=== PATIENT | female | born 1970 | race Caucasian/White ===

== ENCOUNTER 2017-05-18 14:29 | Observation (INO) ==
[2017-05-18 14:57] LABS: Basophils % 0.4 %; Eosinophils # 0.1 K/mcL (0.0-0.6); Eosinophils % 1.5 %; Hematocrit 42.3 % (35.3-44.9); Hemoglobin 14.6 g/dL (11.5-15.4); Immature Granulocytes % 0.3 % (0-4); Lymphocytes # 1.6 K/mcL (0.6-4.6); Lymphocytes % 23.2 %; Mean Corpuscular HGB Conc 34.5 g/dL (31.6-35.5); Mean Corpuscular Hemoglobin 29.9 pg (28.0-33.3); Mean Corpuscular Volume 86.7 fL (83.0-100.0); Mean Platelet Volume 9.4 fL (9.4-12.4); Monocytes # 0.6 K/mcL (0.0-1.3); Monocytes % 8.2 %; Neutrophils # 4.5 K/mcL (1.6-8.9); Platelet Count 171 K/mcL (140-400); Red Blood Count 4.88 M/mcL (3.82-4.97); Red Cell Distribution Width 13.2 % (11.5-14.5); Segmented Neutrophils % 66.4 %
[2017-05-18 15:05] LABS: BUN/Creatinine Ratio 26 (6-26); Blood Urea Nitrogen 14 mg/dL (6-20); Calcium 8.7 mg/dL (8.6-10.3); Carbon Dioxide 31 mEq/L (23-29); Chloride 106 mEq/L (98-107); Glucose 102 mg/dL (70-105); Osmolality,Calculated 291 (280-300); Potassium 3.3 mEq/L (3.5-5.1); Sodium 140 mEq/L (136-145); eGFR For African Americans > 60 (> 60); eGFR For Non-African Americans > 60 (> 60)
--- NOTE | 2017-05-18 15:30 | Emergency Department Note ---
START Narrative - START START: I examined this patient and my medical decision-making was reviewed with the Resident Physician. I agree with the documented findings, disposition and treatment plan as described except to the extent set forth below. 46-year-old female presents emergency room for symptomatic bradycardia. Patient outpatient transthoracic echo done today. This was ordered because she has been taking Imitrex for migraines and they wanted to be sure it was not affecting her heart. During the testing she had a moment or her heart rate dropped and she felt very weak and she could feel her heart beating at a slow rate. She is very symptomatic with this and continues to be asymptomatic in the ER with a heart rate in the low 40s. She does take atenolol. This could be medication induced. Patient needs to be admitted for observation and cardiac monitoring and will hold the beta disha.
--- NOTE | 2017-05-18 15:43 | Emergency Department Note ---
Disposition Clinical Impression: Symptomatic bradycardia Chest pain Qualifiers: Chest pain type: precordial pain Qualified Code(s): R07.2 - Precordial pain Disposition: Admitted As Inpatient Condition: Fair Time of Disposition: 17:09 Chest Pain HPI - General Chief Complaint: ED Chest Pain Stated Complaint: chest pain Time Seen by Provider: 05/18/17 14:57 Source: patient, EMS Limitations: no limitations Vital Signs Reviewed: Yes Nursing Notes Reviewed: Yes - History of Present Illness HPI Narrative: 46-year-old female who complains of lightheadedness and shortness of breath during echocardiogram earlier today. Patient was found to be bradycardic. Patient was sent to the ED for evaluation by Dr. Inman her PCP. Patient also had chest pain mid substernal chest pressure 6/10 and constant. Severity scale (1-10): 8 - Related Data Home Medications Medication Instructions Recorded Confirmed Aspirin Enteric Coated [Aspirin EC] 81 mg PO DAILY 05/18/17 05/18/17 Atenolol [Tenormin] 50 mg PO QPM 05/18/17 05/18/17 EPINEPHrine [Epipen] 0.3 mg IM ONCE PRN 05/18/17 05/18/17 Metformin HCl [Metformin HCl ER] 1,000 mg PO QPM 05/18/17 05/18/17 Potassium Chloride [K-Tab ER] 20 meq PO DAILY 05/18/17 05/18/17 Ranitidine HCl [Zantac] 150 mg PO BID 05/18/17 05/18/17 hydroCHLOROthiazide 25 mg PO DAILY 05/18/17 05/18/17 [Hydrochlorothiazide] Allergies Allergy/AdvReac Type Severity Reaction Status Date / Time acetaminophen [From Percocet] AdvReac See Verified 01/11/15 21:15 Comments hydrocodone [From Vicodin] AdvReac See Verified 01/11/15 21:15 Comments ketorolac [From Toradol] AdvReac See Verified 01/11/15 21:15 Comments meperidine [From Demerol] AdvReac See Verified 01/11/15 21:15 Comments morphine AdvReac See Verified 01/11/15 21:15 Comments Oxycodone [From Percocet] AdvReac See Verified 01/11/15 21:15 Comments tramadol AdvReac See Verified 01/11/15 21:15 Comments All systems ED: reviewed and negative except as stated. Review of Systems: As Per HPI Constitutional: Reports: weakness. Denies: fever Eyes: Denies: vision change ENT ED: Denies: congestion Cardiovascular: Reports: chest pain, palpitations Respiratory: Denies: cough, dyspnea, wheezes Gastrointestinal: Denies: abdominal pain, nausea, vomiting, diarrhea Genitourinary: Denies: urgency, dysuria, frequency Musculoskeletal: Denies: back pain Integumentary: Denies: rash Neurological: Denies: headache Psychiatric: Reports: anxiety Endocrine: Reports: fatigue Chest Pain PMH - Past Medical History Medical history: Reports: hypertension Surgical history: Reports: cholecystectomy, hysterectomy Psychiatric history: Reports: no psych history TRIP RIDER history: Reports: no TRIP RIDER history, polycystic ovary syndrome - Social History Smoking Status: Never smoker Alcohol use: Reports: none Drug use: Reports: none Physical Exam Vital Signs Temperature 98.4 F 05/18/17 14:30 Pulse Rate 52 05/18/17 14:30 Respiratory Rate 16 05/18/17 14:30 Blood Pressure 137/63 05/18/17 14:30 O2 Sat by Pulse Oximetry 94 05/18/17 14:30 Temperature 97.5 F L 05/18/17 20:47 Pulse Rate 52 05/18/17 20:47 Respiratory Rate 15 05/18/17 20:47 Blood Pressure 144/79 05/18/17 20:47 O2 Sat by Pulse Oximetry 95 05/18/17 20:47 Oxygen Delivery Oxygen Delivery Room Air 38-year-old female who is alert and oriented 3 and in no acute distress. Patient looks very fatigued. Patient is nontoxic appearing. Patient has no diaphoresis. Patient has normal-appearing vital signs blood exception of her pulse which is bradycardic at 52 beats minute. - General Limitations: no limitations General appearance: alert, in no apparent distress - Head Head exam: atraumatic, normocephalic, normal inspection - Eye Eye exam: Present: normal appearance, PERRL, EOMI - ENT ENT exam: normal exam, normal oropharynx, mucous membranes moist - Neck Neck exam: Present: normal inspection, full ROM, trachea midline - Chest Chest inspection: Present: normal inspection, symmetric chest wall rise - Respiratory Respiratory exam: Present: normal lung sounds bilaterally - Cardiovascular Cardiovascular exam: Present: normal rhythm, bradycardia - Abdominal Exam Abdominal exam: Present: soft, Non-Tender. Absent: tenderness, distention, guarding, rebound, rigidity - Extremities Exam Extremities exam: Present: normal inspection, full ROM. Absent: tenderness, pedal edema - Back Exam Back exam: Present: normal inspection, full ROM. Absent: tenderness, CVA tenderness (R), CVA tenderness (L) Course Vital Signs Temperature 98.4 F 05/18/17 14:30 Pulse Rate 52 05/18/17 14:30 Respiratory Rate 16 05/18/17 14:30 Blood Pressure 137/63 05/18/17 14:30 O2 Sat by Pulse Oximetry 94 05/18/17 14:30 Temperature 97.5 F L 05/18/17 20:47 Pulse Rate 52 05/18/17 20:47 Respiratory Rate 15 05/18/17 20:47 Blood Pressure 144/79 05/18/17 20:47 O2 Sat by Pulse Oximetry 95 05/18/17 20:47 Oxygen Delivery Oxygen Delivery Room Air Chest Pain - MDM Narrative Medical decision making narrative: Symptomatic sinus bradycardia secondary to sensitivity to her beta disha atenolol. Patient has a normal blood pressure although she is symptomatic with weakness, chest pain and lightheadedness. Patient is given IV normal saline for IV rehydration, aspirin and nitroglycerin. Patient's pain has improved and is doing well but patient is very emotional and anxious. Patient states she does not want anything for anxiety. Heart score 3 1505: Discussed case with Dr. Sanchez of cardiology states admitted to medicine and they will see patient once admitted, hold atenolol, he agrees with my assessment and plan for fluids, aspirin and nitroglycerin. Dr. Horner the [facility] susceptive patient for admission at 1508 hrs. - Lab Data Lab results reviewed: Yes I reviewed the patient's lab results. Lab results narrative: Short CBC 05/18/17 Range/Units 14:45 WBC 6.8 (4.3-11.1) K/mcL Hgb 14.6 (11.5-15.4) g/dL Hct 42.3 (35.3-44.9) % Plt Count 171 (140-400) K/mcL Neutrophils # 4.5 (1.6-8.9) K/mcL BMP 05/18/17 Range/Units 14:45 Sodium 140 (136-145) mEq/L Potassium 3.3 L (3.5-5.1) mEq/L Chloride 106 (98-107) mEq/L Carbon Dioxide 31 H (23-29) mEq/L BUN 14 (6-20) mg/dL Creatinine 0.53 L (0.60-1.20) mg/dL Glucose 102 (70-105) mg/dL Calcium 8.7 (8.6-10.3) mg/dL Cardiac Enzymes 05/18/17 Range/Units 14:45 Troponin I < 0.03 (< 0.04) ng/mL Result diagrams: 05/18/17 14:45 05/18/17 14:45 Lab Results 05/18/17 05/18/17 05/18/17 Range/Units 14:45 14:45 14:45 WBC 6.8 (4.3-11.1) K/mcL RBC 4.88 (3.82-4.97) M/mcL Hgb 14.6 (11.5-15.4) g/dL Hct 42.3 (35.3-44.9) % MCV 86.7 (83.0-100.0) fL MCH 29.9 (28.0-33.3) pg MCHC 34.5 (31.6-35.5) g/dL RDW 13.2 (11.5-14.5) % Plt Count 171 (140-400) K/mcL MPV 9.4 (9.4-12.4) fL Immature Gran % 0.3 (0-4) % Seg Neutrophils % 66.4 % Lymphocytes % 23.2 % Monocytes % 8.2 % Eosinophils % 1.5 % Basophils % 0.4 % Neutrophils # 4.5 (1.6-8.9) K/mcL Lymphocytes # 1.6 (0.6-4.6) K/mcL Monocytes # 0.6 (0.0-1.3) K/mcL Eosinophils # 0.1 (0.0-0.6) K/mcL Basophils # 0.0 (0.0-0.2) K/mcL Sodium 140 (136-145) mEq/L Potassium 3.3 L (3.5-5.1) mEq/L Chloride 106 (98-107) mEq/L Carbon Dioxide 31 H (23-29) mEq/L BUN 14 (6-20) mg/dL Creatinine 0.53 L (0.60-1.20) mg/dL Est GFR ( Amer) > 60 (> 60) Est GFR (Non-Af Amer) > 60 (> 60) BUN/Creatinine Ratio 26 (6-26) Glucose 102 (70-105) mg/dL Calculated Osmolality 291 (280-300) Calcium 8.7 (8.6-10.3) mg/dL Troponin I < 0.03 (< 0.04) ng/mL - Radiology Data Radiology results reviewed: Yes I reviewed the patient's radiology results. Chest X-Ray 05/18/17 14:33 IMPRESSION: No acute cardiopulmonary disease. D/ / Christiano Rollins MD / Christiano Rollins MD Interpreting Provider: Christiano Rollins MD - EKG Data EKG attestation: Yes I reviewed and interpreted this EKG. EKG results narrative: Today's EKG shows sinus bradycardia at a rate of [address] elevations or depressions and a needs, there is EKG shows sinus rhythm at 61 beats minute. EKG shows normal: sinus rhythm Rate: bradycardia When compared to previous EKG there are: changes noted (. His EKG taken 2016) Heart Score - Score History: Slightly Suspicious EKG: Non Specific repolarisation Disturbance Age: 45-65 Risk Factors: 1-2 risk factors Troponin: Less than normal limit HEART Score Total: 3
[2017-05-18] MEDS ORDERED: Nitroglycerin 0.4 MG TAB.SUBL SL PRN (16:34)
[2017-05-18] MEDS ORDERED: 0.9 % Sodium Chloride 1,000 ML IVC ONE (16:35)
[2017-05-18] MEDS ORDERED: Ondansetron 4 MG/2 ML VIAL IVP PRN ×2 (16:46→22:17)
[2017-05-18] MEDS ORDERED: Naloxone 0.4 MG/ML INJ IVP PRN (20:24)
--- NOTE | 2017-05-18 22:11 | Internal Med History&Physical ---
Date of Encounter: 05/18/17 Time of Encounter: 22:09 Assessment and Plan (1) Symptomatic bradycardia Current visit: Yes Status: Acute Likely caused by atenolol use. No prior h/o LA. However she does admit to some atypical CP. Remains hemodynamically stable. - cardiac enzymes x 2 q 6 hr - EKG result of SB with rate of 48 - ASA - O2 by NC to keep SpO2 greater than 92%; continuous tele and spo2 monitoring - CBCD, BMP in AM - Fasting lipids - Tylenol 650 mg PO q 4-6 hr PRN headache - Home meds (check list) - Heparin 5000 U SQ BID - 2D Echo completed this afternoon; EF 60% no systolic or diastolic dysfunction. Sinus bradycardia with rate in the 40's - Cardiology consult- will see in the morning -Hold BB (2) Chest pain Current visit: Yes Status: Acute Continues to have precordial chest pressure with radiation to bilateral posterior shoulders. Initial troponin negative EKG shows sinus bradycardia without ST elevation or depression. see plan above Qualifiers: Chest pain type: precordial pain Qualified Code(s): R07.2 - Precordial pain (3) Hypokalemia Current visit: Yes Status: Acute Received 40 meq K in the ED check serum mg now- replace pending results recheck serum potassium in am (4) DVT prophylaxis Current visit: Yes Status: Acute Heparin 5000 units subcutaneous twice a day Internal Medicine - H&P: HPI Chief complaint: intermittent weakness and fatigue, dizziness chest discomfort Admitted From: Home Plans for Post Hospital Care: Home History of present illness: Ms. Blanc is a 46 year old female with past medical history of hypertension. Reports that she was outpatient clinic today getting transthoracic echocardiogram. During the procedure she began experiencing weakness fatigue and she felt like her heart was beating really slow. Continues to endorse fatigue, dizziness, chest pressure with radiation to bilateral shoulders. Denies any diaphoresis, nausea, vomiting. No prior history of LA. She does take atenolol at home. Initial workup in the ED results with troponin that is 0.3 and EKG was sinus bradycardia without ST elevation or depression. However due to heart rate in the 40s she is being admitted Past Med Surg Social Fam HX - Past Medical History Medical history: hypertension Psychiatric history: no psych history - Past Surgical History Surgical History: cholecystectomy, hysterectomy - Social History Smoking Status: Former smoker Smokeless Tobacco Status: No Alcohol use: none Drug use: none - Family History Father Hx Family Cardiac Disorders: Yes Mother Hx Family Cancer: Yes Internal Medicine - H&P: Meds Aspirin Enteric Coated [Aspirin EC] 81 mg PO DAILY 05/18/17 [History] Atenolol [Tenormin] 50 mg PO QPM 05/18/17 [History] EPINEPHrine [Epipen] 0.3 mg IM ONCE PRN 05/18/17 [History] Metformin HCl [Metformin HCl ER] 1,000 mg PO QPM 05/18/17 [History] Potassium Chloride [K-Tab ER] 20 meq PO DAILY 05/18/17 [History] Ranitidine HCl [Zantac] 150 mg PO BID 05/18/17 [History] hydroCHLOROthiazide [Hydrochlorothiazide] 25 mg PO DAILY 05/18/17 [History] 3 Allergy/AdvReac Type Severity Reaction Status Date / Time acetaminophen [From Percocet] AdvReac See Verified 01/11/15 21:15 Comments hydrocodone [From Vicodin] AdvReac See Verified 01/11/15 21:15 Comments ketorolac [From Toradol] AdvReac See Verified 01/11/15 21:15 Comments meperidine [From Demerol] AdvReac See Verified 01/11/15 21:15 Comments morphine AdvReac See Verified 01/11/15 21:15 Comments Oxycodone [From Percocet] AdvReac See Verified 01/11/15 21:15 Comments tramadol AdvReac See Verified 01/11/15 21:15 Comments All Systems PM: A 10-system review of systems was performed and is negative for pertinent findings except as documented above in the HPI. Review of systems: GENERAL: Negative for any nausea, vomiting, fevers, chills, or weight loss. Positive for fatigue NEUROLOGIC: Negative for any blurry vision, blind spots, double vision, facial asymmetry, dysphagia, dysarthria, hemiparesis, hemisensory deficits, vertigo, ataxia. HEENT: Negative for any head trauma, neck trauma, neck stiffness, photophobia, phonophobia, sinusitis, rhinitis. CARDIAC: Chest discomfort described as pressure with radiation to bilateral shoulders, dizziness PULMONARY: Negative for any shortness of breath, wheezing, COPD, or TB exposure. GASTROINTESTINAL: Negative for any abdominal pain, nausea, vomiting, bright red blood per rectum, melena. GENITOURINARY: Negative for any dysuria, hematuria, incontinence. INTEGUMENTARY: Negative for any rashes, cuts, insect bites. RHEUMATOLOGIC: Negative for any joint pains, photosensitive rashes, history of vasculitis or kidney problems. HEMATOLOGIC: Negative for any abnormal bruising, frequent infections or bleeding - Constitutional Vitals: Temp Pulse Resp BP Pulse Ox 97.5 F L 52 15 144/79 95 05/18/17 20:47 05/18/17 20:47 05/18/17 20:47 05/18/17 20:47 05/18/17 20:47 General appearance: Present: cooperative, A&O X 3, no acute distress, answers questions appropriately Exam: GENERAL: The patient is a well-developed, well-nourished female in no apparent distress. SHe is alert and oriented x3. VITAL SIGNS: Temperature 98.4, pulse 72, respirations 18, blood pressure 146/78 , and O2 saturation 96% on room air. HEENT: Head is normocephalic and atraumatic. Extraocular muscles are intact. Pupils are equal, round, and reactive to light and accommodation. Nares appeared normal. Mouth is well hydrated and without lesions. Mucous membranes are moist. Posterior pharynx clear of any exudate or lesions. NECK: Supple. No carotid bruits. No lymphadenopathy or thyromegaly. LUNGS: Clear to auscultation. HEART: Bradycardia with regular rhythm, without murmur ABDOMEN: Soft, nontender, and nondistended. Positive bowel sounds. No hepatosplenomegaly was noted. EXTREMITIES: Without any cyanosis, clubbing, rash, lesions or edema. NEUROLOGIC: Cranial nerves II through XII are grossly intact. PSYCHIATRIC: Flat affect, but denies suicidal or homicidal ideations. SKIN: No ulceration or induration present. Internal Med - H&P Results - Labs CBC & Chem 7: 05/18/17 14:45 05/18/17 14:45 Labs: Cardiac Enzymes 05/18/17 Range/Units 21:02 Troponin I < 0.03 (< 0.04) ng/mL - EKG Data -: EKG Interpreted by Myself EKG shows normal: sinus rhythm Rate: bradycardia - EKG Data EKG comments: Sinus bradycardia with a rate of [address] elevation or depression noted 05/18/17 22:16 - Diagnostic Studies Chest x-ray Status: image reviewed by me Additional comments: No acute pulmonary process
[2017-05-18] MEDS: Famotidine 20 MG TABLET PO SCH (22:38)
[2017-05-19 02:14] LABS: Basophils % 0.3 %; Eosinophils # 0.1 K/mcL (0.0-0.6); Hematocrit 37.7 % (35.3-44.9); Immature Granulocytes % 0.2 % (0-4); Lymphocytes # 1.7 K/mcL (0.6-4.6); Lymphocytes % 28.4 %; Mean Corpuscular HGB Conc 34.2 g/dL (31.6-35.5); Mean Corpuscular Hemoglobin 30.1 pg (28.0-33.3); Mean Corpuscular Volume 88.1 fL (83.0-100.0); Mean Platelet Volume 9.3 fL (9.4-12.4); Monocytes # 0.5 K/mcL (0.0-1.3); Monocytes % 7.4 %; Neutrophils # 3.7 K/mcL (1.6-8.9); Platelet Count 157 K/mcL (140-400); Red Blood Count 4.28 M/mcL (3.82-4.97); Red Cell Distribution Width 13.5 % (11.5-14.5); Segmented Neutrophils % 61.7 %
[2017-05-19 02:15] LABS: Hemoglobin 12.9 g/dL (11.5-15.4)
[2017-05-19 02:27] LABS: BUN/Creatinine Ratio 22 (6-26); Blood Urea Nitrogen 13 mg/dL (6-20); Calcium 8.2 mg/dL (8.6-10.3); Carbon Dioxide 28 mEq/L (23-29); Chloride 109 mEq/L (98-107); Chol/HDL Ratio 4.8 (0-4.9); Cholesterol 160 mg/dL (< 200); Glucose 151 mg/dL (70-105); HDL Cholesterol 33 mg/dL (40-59); LDL Cholesterol,Calculated 105 mg/dL (0-99); Osmolality,Calculated 293 (280-300); Potassium 3.6 mEq/L (3.5-5.1); Sodium 140 mEq/L (136-145); Triglycerides 108 mg/dL (< 150); eGFR For African Americans > 60 (> 60); eGFR For Non-African Americans > 60 (> 60)
[2017-05-19] MEDS ORDERED: *HR* Heparin 5,000 UNIT/ML VIAL SQ SCH (06:00)
[2017-05-19] MEDS ORDERED: hydroCHLOROthiazide 25 MG TABLET PO SCH (09:00)
[2017-05-19] MEDS ORDERED: Aspirin Enteric Coated 81 MG Tablet PO SCH (09:00)
[2017-05-19] MEDS: Famotidine 20 MG TABLET PO SCH (09:40)
[2017-05-19] MEDS ORDERED: Acetaminophen 325 MG TABLET PO ONE (09:41)
--- NOTE | 2017-05-19 09:50 | Cardiology Consult Note ---
<Mariela Garcia Go - Last Filed: 05/19/17 09:51> Date of Encounter: 05/19/17 Time of Encounter: 08:30 Assessment and Plan (1) Symptomatic bradycardia Current Visit: Yes Status: Acute Likely secondary to betablocker, symptoms have improved since admission. HR 48 SB upon arrival to ED. Has been on Atenolol 50 mg daily since 2013. Replace potassium, 3.3 upon admission. HR improved with holding of betablocker. Last dose, Tuesday. Telemetry review: avg HR=51 overnight. Min=40 (nocturnal). No pause. HR 60's upon exam this morning. Continue to monitor telemetry for additional 24 hours. Consider HM upon discharge. (2) Chest pain Current Visit: Yes Status: Acute Atypical chest pain. Troponin negative x3. No ischemic ECG changes. TTE 05/18/17: EF 60% with normal wall motion. Negative nuclear stress test October 2014. Follow-up with Cardiology in the outpatient setting, can consider repeating stress test if symptoms have not improved. Qualifiers: Chest pain type: precordial pain Qualified Code(s): R07.2 - Precordial pain Discussion w patient/family: The assessment and plan as outlined above was discussed with the patient and/or family members who expressed understanding and agreement. All questions were answered. Thank you for involving us in the care of your patient. Please call with any questions. The patient will be discussed and reviewed with , changes to be made accordingly. History of Present Illness Consult date: 05/19/17 Requesting physician: Samaria Farrar Consult reason: Bradycardia Chief complaint: Chest pain, fatigue History of present illness: Ms. Blanc is a 46 year old female with PMHx significant for DMII, obesity, chronic pain, and HTN who presented to the ED with complaints of slow heart rate and chest pain. Pt. was getting outpatient echocardiogram when felt tired, she was told her HR was in the 40's and was recommended to follow-up with PCP that day. She saw PCP who recommended ED evaluation due to ongoing bradycardia and complaints of chest pain. Chest discomfort is described as left-sided sharp pain that is constant and radiates to back. Reports SL NTG tab improved but did not alleviate pain; discomfort worsens with body movement including sitting up, walking, etc. She reports 6 month history of fatigue, reports symptoms started after starting medication--Imitrex which has since been stopped. Upon arrival to ED, ECG demonstrated SB HR 48. Troponin was negative. Prior CV testin-day regadenoson nuclear 10/24/14: perfusion imaging negative for ischemia or infarct. TTE 05/18/17: LVEF 60%, mild LVDD, mild TR, normal wall motion. Past Med Surg Social Fam HX - Past Medical History Attestation: Yes The following information was validated with the patient. Source: patient Medical history: diabetes, hypertension Psychiatric history: no psych history - Past Surgical History Surgical History: cholecystectomy, hysterectomy - Social History Smoking Status: Never smoker Smokeless Tobacco Status: No Alcohol use: none Drug use: none - Family History Father Hx Family Cardiac Disorders: Yes Mother Hx Family Cancer: Yes Medications and Allergies Aspirin Enteric Coated [Aspirin EC] 81 mg PO DAILY 05/18/17 [History] Atenolol [Tenormin] 50 mg PO QPM 05/18/17 [History] EPINEPHrine [Epipen] 0.3 mg IM ONCE PRN 05/18/17 [History] Metformin HCl [Metformin HCl ER] 1,000 mg PO QPM 05/18/17 [History] Potassium Chloride [K-Tab ER] 20 meq PO DAILY 05/18/17 [History] Ranitidine HCl [Zantac] 150 mg PO BID 05/18/17 [History] hydroCHLOROthiazide [Hydrochlorothiazide] 25 mg PO DAILY 05/18/17 [History] 3 Allergy/AdvReac Type Severity Reaction Status Date / Time hydrocodone [From Vicodin] AdvReac See Verified 01/11/15 21:15 Comments ketorolac [From Toradol] AdvReac See Verified 01/11/15 21:15 Comments meperidine [From Demerol] AdvReac See Verified 01/11/15 21:15 Comments morphine AdvReac See Verified 01/11/15 21:15 Comments Oxycodone [From Percocet] AdvReac See Verified 01/11/15 21:15 Comments tramadol AdvReac See Verified 01/11/15 21:15 Comments All Systems Review: A 10-system review of systems was performed and is negative for pertinent findings except as documented above in the HPI. - Cardiovascular Cardiovascular: as per HPI Physical Examination Vital Signs, Last 4 Hours Temp Pulse Resp BP Pulse Ox 05/19/17 07:33 97.9 F 50 17 112/62 97 General: Conversant, No Apparent Distress HEENT: Atraumatic, Normocephaly, Mucus Membranes Moist Cardiac: Reg Rate and Rhythm (bradycardiac), Normal S1 and S2 Lungs: Normal Breath Sounds Neuro: Alert and responsive Abdomen: Soft Skin: No rashes noted on visualized skin Musculoskeletal: No Chest Wall Tenderness Extremities: No Edema, Normal Pulses Results 05/19/17 01:55 05/19/17 01:55 Lab Results 05/18/17 05/19/17 05/19/17 21:02 01:55 01:55 WBC 6.1 Hgb 12.9 D Hct 37.7 Plt Count 157 Sodium Potassium Chloride Carbon Dioxide BUN Creatinine Glucose Calcium Magnesium Troponin I < 0.03 < 0.03 05/19/17 05/19/17 01:55 01:55 WBC Hgb Hct Plt Count Sodium 140 Potassium 3.6 Chloride 109 H Carbon Dioxide 28 BUN 13 Creatinine 0.60 Glucose 151 H Calcium 8.2 L Magnesium 2.0 Troponin I - Imaging and Cardiology Stress Test: report reviewed Echo: report reviewed Other Results: 12 hour tele: avg HR=51 SB. Min=40 (nocturnal) No pause. - EKG Interpretation EKG results cardiology: personally reviewed Consult Discharge Plan - Plan Referrals: Pipo Inman MD [Primary Care Provider] - 05/26/17 11:00 am <Milton Sanchez - Last Filed: 05/19/17 13:08> Date of Encounter: 05/19/17 Time of Encounter: 12:30 - Attending Attestation I have personally performed a face to face evaluation on this patient. I have reviewed and agree with the care plan. History and Exam by me shows: IMP 1. Symptomatic bradycardia, secondary to atenolol, started for hyptn, now held x 18 hours with resolution of sinus bradycardia, pt now ambulatory, dizzyness and fatique much improved. She is at low riks for hospital discharge, will follow in office in two to three weeks, monitor bp off atenolol, will consider Holter monitor if symptomatic at that time. 2. Chest pain: atypical, most consistent with musculoskeletal etiology, 3. BEH - blood pressure remains adequately controlled off atenolol, monitor and record at home bid, will review at next office visit 4. Non insulin dependent Adult onset DM, controlled on oral agents, now change in tx 5. GERD - controlled on current meds. Assessment and Plan Discussion w patient/family: The assessment and plan as outlined above was discussed with the patient and/or family members who expressed understanding and agreement. All questions were answered. Thank you for involving us in the care of your patient. Please call with any questions. History of Present Illness History of present illness: Ms. Blanc is a 46 year old female All Systems Review: A 10-system review of systems was performed and is negative for pertinent findings except as documented above in the HPI. Physical Examination Vital Signs, Last 4 Hours Temp Pulse Resp BP Pulse Ox 05/19/17 11:39 97.4 F L 51 17 121/74 95 05/19/17 09:44 97 Results 05/19/17 01:55 05/19/17 01:55 Lab Results 05/18/17 05/19/17 05/19/17 21:02 01:55 01:55 WBC 6.1 Hgb 12.9 D Hct 37.7 Plt Count 157 Sodium Potassium Chloride Carbon Dioxide BUN Creatinine Glucose Calcium Magnesium Troponin I < 0.03 < 0.03 05/19/17 05/19/17 01:55 01:55 WBC Hgb Hct Plt Count Sodium 140 Potassium 3.6 Chloride 109 H Carbon Dioxide 28 BUN 13 Creatinine 0.60 Glucose 151 H Calcium 8.2 L Magnesium 2.0 Troponin I
[2017-05-19] MEDS ORDERED: Ibuprofen 400 MG TABLET PO ONE (09:55)
--- NOTE | 2017-05-19 10:15 | Internal Med Progress Note ---
Date of Encounter: 05/19/17 Time of Encounter: 10:16 - Assessment and plan (1) Symptomatic bradycardia Current Visit: Yes Status: Acute Assessment and plan: This most likely is caused by atenolol use she has been on atenolol since 2013 has been unchanged on it. She also takes hydrochlorothiazide for blood pressure. The bradycardia occurred after she was getting a TTE or she did feel weak. She no longer feels weak only feeling the slight bradycardia. She has a history of bradycardia says she normally sits between 50 and 60 bpm but has never been in the 40s like prior to her admission. Patient's 2-D echo completed earlier today showed an EF of 60% with no systolic or diastolic dysfunction. Troponins 2 negative. EKG sinus bradycardia with no acute ST or T-wave abnormalities. Aspirin, given in the emergency department O2 by nasal cannula to keep SPO2 greater than 92%. Continuous telemetry. Hold atenolol We will continue to watch her for 24 hours on telemetry plan for discharge tomorrow if no overnight events. Cardiology has seen the patient and recommends: Continue monitor telemetry for additional 24 hours. Continue holding atenolol. Consider Holter monitor upon discharge. Follow-up with cardiology in the outpatient setting and possibly consider repeating stress test if symptoms are not improved. (2) Chest pain Current Visit: Yes Status: Acute Assessment and plan: Patient is still having precordial chest pressure without radiation says it only occurs though with exertion and really occurs with every single heartbeat during exertion. Initial and second troponin came back negative. EKG only showed sinus bradycardia without any ST elevation or depression or any other acute changes. Patient was given aspirin and nitroglycerin in the emergency department. Nitroglycerin did not help with her chest pain. Patient does state that the chest pain is getting better day by day. This most likely is not an acute coronary event. Cardiology following see above for cardiology recommendations Qualifiers: Chest pain type: precordial pain Qualified Code(s): R07.2 - Precordial pain (3) Hypokalemia Current Visit: Yes Status: Acute Assessment and plan: Patient's original potassium in the emergency department was 3.3. They did give 40 mEq potassium in the emergency department. Today it is 3.6. Resolved but we will continue to monitor. (4) Headache Current Visit: Yes Status: Acute Assessment and plan: Patient headache most likely secondary to giving nitroglycerin. There are no recent falls she has had no head trauma or any other sources for the headache. We will give Tylenol for headache. Qualifiers: Headache type: unspecified Headache chronicity pattern: acute headache Intractability: not intractable Qualified Code(s): R51 - Headache (5) DVT prophylaxis Current Visit: Yes Status: Acute Assessment and plan: Heparin 5000 units subcutaneous twice a day - Subjective Interval history: Patient states that she did well overnight she is not having anymore symptoms of the bradycardia but she is still having this left-sided chest pain that is underneath her breast. Says it does come and go butit is worse whenever she moves. She says it feels like a sharp pain as her heart takes each beat. He is not complaining of any chest pressure, shortness of breath, nausea, vomiting , fevers. She having no other pain anywhere else. Patient said she is no longer as weakness when she originally was admitted. Patient otherwise has no complaints. no overnight event. - Constitutional Vitals: Temp Pulse Resp BP Pulse Ox 97.9 F 50 17 112/62 97 05/19/17 07:33 05/19/17 07:33 05/19/17 07:33 05/19/17 07:33 05/19/17 09:44 General appearance: Present: cooperative, A&O X 3, no acute distress, answers questions appropriately - Head Head exam: Present: atraumatic, normocephalic - Eye Eye exam: Present: PERRL, conjuntiva pink, sclera anicteric Pupils: Present: PERRL - Neck Neck exam general surgery: Present: supple, trachea midline. Absent: lymphadenopathy - Respiratory Respiratory exam: Present: CTAB. Absent: accessory muscle use, rales, rhonchi, wheezes - Cardiovascular Cardiovascular exam: Present: bradycardia, RRR, +S1, +S2. Absent: diastolic murmur, gallop, rubs, systolic murmur - GI/Abdominal GI/Abdominal exam: Present: normal bowel sounds, soft, no peritoneal signs. Absent: distended, tenderness - Extremities Exam Extremities exam: Present: warm, radial pulses palpable and symmetrical. Absent : calf tenderness, cyanotic, pedal edema - Neurological Exam Neurological exam: Present: CN II-XII intact, oriented X3, no focal deficits. Absent: pronater drift, facial droop, speech deficit - Skin Skin exam: Present: dry, intact Internal Medicine: Result - Labs CBC & Chem 7: 05/19/17 01:55 05/19/17 01:55 Labs: Short CBC 05/19/17 Range/Units 01:55 WBC 6.1 (4.3-11.1) K/mcL Hgb 12.9 D (11.5-15.4) g/dL Hct 37.7 (35.3-44.9) % Plt Count 157 (140-400) K/mcL Neutrophils # 3.7 (1.6-8.9) K/mcL BMP 05/19/17 01:55 Sodium 140 Potassium 3.6 Chloride 109 H Carbon Dioxide 28 BUN 13 Creatinine 0.60 Glucose 151 H Calcium 8.2 L Cardiac Enzymes 05/18/17 05/19/17 Range/Units 21:02 01:55 Troponin I < 0.03 < 0.03 (< 0.04) ng/mL Consult Discharge Plan - Plan Referrals: Pipo Inman MD [Primary Care Provider] - 05/26/17 11:00 am
[2017-05-19 11:40] VITALS: BP 121/74
--- NOTE | 2017-05-19 13:15 | Discharge Summary ---
<ReggieJeremy - Last Filed: 05/19/17 13:13> Date of Encounter: 05/19/17 Time of Encounter: 13:13 - Discharge Diagnosis (1) Symptomatic bradycardia Priority: Primary Status: Acute (2) Chest pain Priority: Secondary Status: Acute Qualifiers: Chest pain type: precordial pain Qualified Code(s): R07.2 - Precordial pain (3) Hypokalemia Priority: Secondary Status: Acute (4) Headache Priority: Secondary Status: Resolved Qualifiers: Headache type: unspecified Headache chronicity pattern: acute headache Intractability: not intractable Qualified Code(s): R51 - Headache (5) DVT prophylaxis Priority: Secondary Status: Acute - Discharge Medications Home Medications: Aspirin Enteric Coated [Aspirin EC] 81 mg PO DAILY 05/18/17 [History] EPINEPHrine [Epipen] 0.3 mg IM ONCE PRN 05/18/17 [History] Metformin HCl [Metformin HCl ER] 1,000 mg PO QPM 05/18/17 [History] Potassium Chloride [K-Tab ER] 20 meq PO DAILY 05/18/17 [History] Ranitidine HCl [Zantac] 150 mg PO BID 05/18/17 [History] hydroCHLOROthiazide [Hydrochlorothiazide] 25 mg PO DAILY 05/18/17 [History] Allergies/Adverse Reactions: 3 Allergy/AdvReac Type Severity Reaction Status Date / Time hydrocodone [From Vicodin] AdvReac See Verified 01/11/15 21:15 Comments ketorolac [From Toradol] AdvReac See Verified 01/11/15 21:15 Comments meperidine [From Demerol] AdvReac See Verified 01/11/15 21:15 Comments morphine AdvReac See Verified 01/11/15 21:15 Comments Oxycodone [From Percocet] AdvReac See Verified 01/11/15 21:15 Comments tramadol AdvReac See Verified 01/11/15 21:15 Comments Date of admission: 05/18/17 17:18 Primary care physician: Pipo Inman MD Discharging clinician: Jeremy Paredes Anticipated date of discharge: 05/19/17 - Patient Status Disposition: Home, Self-Care Condition: Good Functional capacity at discharge: independent ambulation Overall status at discharge: patient is back to baseline - Ambulatory Orders Ambulatory Orders: ECG holter monitor [ECG] Time Frame: 2 Days, Facility: [facility], Location: Cardiopulmonary Svc - Discharge Instructions Instructions: Chest Pain (DC) Follow Up With: Pipo Inman MD [Primary Care Provider] - 05/26/17 11:00 am - Diet and Activity Activity: resume usual activities as tolerated Diet: advance to your usual diet Interval History: Patient states she is still having the muscular skeletal chest pain. She is less weak and less nauseous today. She is feeling better. She is not feeling like her heart rate is going as slow as it was yesterday. She says the chest pain is only on exertion. But describes it as feeling her heart beat more palpation like. Patient is having nausea or vomiting or fevers or urinary symptoms or changes in bowel movements. Hospital course: Ms. Blanc is a 46 year old female presented to the emergency department after having a TTE done which came back normal with no diastolic or systolic dysfunction and a EF of 60-65%. After the procedure they noticed she was bradycardic in the 40s so sent her to her primary care physician who was worried about the bradycardia and transferred her via squad to the emergency department. While in the emergency department she was having chest pains treated with aspirin and nitroglycerin. The nitroglycerin did cause a headache which is sent away with Tylenol. Her EKG was normal and all other labs including troponins 2 as well as chest x-ray were normal. She was bradycardic there but she does take atenolol as well as hydrochlorothiazide for hypertension. Due the chest pain and bradycardia as well as generalized weakness the ED admitted the patient to the hospital service with cardiology consultation. Atenolol was stopped when admitted. And continued all other home medications. Cardiology did consult her and they recommended that we continue the stopping of atenolol and recommended 48 hour Holter monitor which they are setting up to their office. They will follow-up in the outpatient setting. Patient should continue all other medications. These were discussed with the patient and she agrees with this plan. Patient is no longer bradycardic. Patient is discharged home in stable condition with proper follow- up. Time spent discussing smoking cessation with patient: 3 to 10 minutes - Time Spent with Patient Total time spent providing and/or coordinating discharge services: Less than 30 minutes - Constitutional Vitals: Temp Pulse Resp BP Pulse Ox 97.4 F L 51 17 121/74 95 05/19/17 11:39 05/19/17 11:39 05/19/17 11:39 05/19/17 11:39 05/19/17 11:39 General appearance: Present: cooperative, A&O X 3, no acute distress, answers questions appropriately - Head Head exam: Present: atraumatic, normocephalic - Eye Eye exam: Present: PERRL, conjuntiva pink, sclera anicteric Pupils: Present: PERRL - Neck Neck exam general surgery: Present: supple, trachea midline. Absent: lymphadenopathy - Respiratory Respiratory exam: Present: CTAB. Absent: accessory muscle use, rales, rhonchi, wheezes - Cardiovascular Cardiovascular exam: Present: bradycardia, RRR, +S1, +S2. Absent: diastolic murmur, gallop, rubs, systolic murmur - GI/Abdominal GI/Abdominal exam: Present: normal bowel sounds, soft, no peritoneal signs. Absent: distended, tenderness - Extremities Exam Extremities exam: Present: warm, radial pulses palpable and symmetrical. Absent : calf tenderness, cyanotic, pedal edema - Neurological Exam Neurological exam: Present: CN II-XII intact, oriented X3, no focal deficits. Absent: pronater drift, facial droop, speech deficit - Skin Skin exam: Present: dry, intact <Slim Tan T - Last Filed: 05/19/17 16:19> Date of Encounter: 05/19/17 Procedures/tests Complete & Pending: Procedures Performed prior 72 hours Category Date Time Status ECG 12 lead ECG [ECG] Routine Y 05/18/17 20:22 Completed ECG holter monitor [ECG] Routine Y 05/19/17 Completed Date of admission: 05/18/17 17:18 Primary care physician: Pipo Inman MD Hospital course: Ms. Blanc is a 46 year old female - Time Spent with Patient Total time spent providing and/or coordinating discharge services: - Constitutional Vitals: Temp Pulse Resp BP Pulse Ox 97.4 F L 51 17 121/74 95 05/19/17 11:39 05/19/17 11:39 05/19/17 11:39 05/19/17 11:39 05/19/17 11:39 - Attending Attestation I have independently seen and examined this patient at bedside, on 05/19/17 Admitted to observation for bradycadia, asymptomatic, ECHO is normal Complained of feeling sluggish and weight tae, otherwise asymptomatic, blood pressure is controlled on current meds. Physical exam is unremarkable, obese. Patient is stable for discharge. TSH as out-patient with PCP Follow up with PCP Rest as in resident physician's documentation
--- NOTE | 2017-05-19 19:56 | Electrocardiograph Report ---
[address] [place], [place] [address] Test Date: 2017-05-18 Pat Name: Melody Blanc Department: 104 Room: 2A26 Gender: F [employer] El[employer] Operator: : 1970 Requested By: Slim Tan Order Number: [id number] Reading MD: Kiko Judd MD Measurements Intervals [place] Rate: 48 P: 48 RI: 168 QRS: 10 QRSD: 92 T: 24 QT: 465 QTc: 431 Interpretive Statements SINUS BRADYCARDIA Electronically Signed On 05-19-2017 19:54:30 EST by Kiko Judd MD
--- NOTE | 2017-05-20 09:29 | Electrocardiograph Report ---
[place] [address] Test Date: 2017-05-18 Pat Name: Melody Blanc Department: 112 Room: 2A26 Gender: F Clinical Care Leader: : 1970 Requested By: Agnieszka Alegria Order Number: [id number] Reading MD: Dina Gunter Measurements Intervals [place] Rate: 46 P: 69 NV: 164 QRS: 17 QRSD: 79 T: 16 QT: 532 QTc: 491 Interpretive Statements SINUS BRADYCARDIA PROLONGED QT INTERVAL Electronically Signed On 05-20-2017 9:28:08 EST by Dina Gunter
== END 2017-05-19 14:51 | disposition home or self-care (01) ==
LOC: EMEROO 14:29 → 2ANU 14:29
PROVIDERS: ADMIT Nurse Practitioner; ATTEND Internal Medicine